=== PATIENT | male | born 1960 | race Caucasian/White ===

== ENCOUNTER 2021-01-13 09:44 | Emergency (ER) | payer OTHER, MEDICAID ==
[~2021-01-13] VITALS: Ht 177.8 cm; Wt 104.3 kg
[2021-01-13] MEDS ORDERED: NORCO5 PO ×2 (13:35→13:51)
[2021-01-13] MEDS ORDERED: AUGMENTIN 875-1 EACH PO (13:35)
[2021-01-13 14:59] VITALS: BP 123/87
== END 2021-01-13 15:01 | disposition home or self-care (01) ==
LOC: M.ERS 09:44
DX: S52.611A Displaced fracture of right ulna styloid process, initial encounter for closed fracture (principal); S51.811A Laceration without foreign body of right forearm, initial encounter; W54.0XXA Bitten by dog, initial encounter; Y93.89 Activity, other specified; Y92.89 Other specified places as the place of occurrence of the external cause; Y99.9 Unspecified external cause status